=== PATIENT | female | born 1995 | race Hispanic/Latino ===

== ENCOUNTER 2025-09-01 17:57 | Inpatient (IN) | payer OTHER ==
[2025-09-01 18:43] VITALS: BMI 33.9
[2025-09-01] MEDS ORDERED: Methylergonovine 0.2 MG/ML VIAL IM PRN (19:23)
[2025-09-01] MEDS ORDERED: Acetaminophen 500 MG TAB PO PRN (19:23)
[2025-09-01] MEDS ORDERED: Lidocaine 1% (PF) 30 ML VIAL SC PRN (19:23)
[2025-09-01] MEDS ORDERED: Diphenoxylate HCl/Atropine Tablet PO PRN ×2 (19:23)
[2025-09-01] MEDS ORDERED: Tranexamic Acid 1,000 MG/10 ML VIAL IVP PRN (19:23)
[2025-09-01] MEDS ORDERED: hydrALAZINE 20 MG/ML VIAL SLOW IVP PRN (19:23)
[2025-09-01] MEDS ORDERED: Carboprost 250 MCG/ML AMP IM PRN (19:23)
[2025-09-01] MEDS ORDERED: Ondansetron PF 4 MG/2 ML Vial IVP PRN (19:23)
[2025-09-01] MEDS ORDERED: Oxytocin 30 units/NS 500 ML 500 ML IV SCH ×2 (19:30)
[2025-09-01] MEDS ORDERED: Glucagon 1 MG/ML KIT IM PRN (19:33)
[2025-09-01] MEDS ORDERED: Dextrose 50% Abboject 50 ML SYRINGE SLOW IVP PRN (19:33)
[2025-09-01 19:53] LABS: Glucose 86 mg/dL (70-105)
[2025-09-01 20:16] LABS: Syphilis Antibody Index 0.12 S/CO (<1.00 Non-Reactive)
[2025-09-01 20:17] LABS: Hep B Surf Ag - L&D Non-Reactive S/CO (NonReactive)
[2025-09-01 20:22] LABS: Hematocrit 36.3 % (34.9-44.5); Hemoglobin 12.2 g/dL (12.0-15.5); Mean Corpuscular Hemoglobin 28.4 pg (27.0-33.0); Mean Corpuscular Volume 84.4 fL (81.6-98.3); Platelet Count 126 10x3/uL (150-450); Red Blood Cell (RBC) Count 4.30 10x6/uL (3.90-5.03); White Blood Cell (WBC) Count 9.17 10x3/uL (3.5-10.5)
[2025-09-02] MEDS: fentaNYL/Ropivacaine Epidural 100 ML ONE (03:01)
[2025-09-02] MEDS ORDERED: diphenhydrAMINE 50 MG/ML VIAL IVP PRN (03:09)
[2025-09-02] MEDS ORDERED: Ondansetron PF 4 MG/2 ML Vial IVP PRN ×2 (03:09→08:41)
[2025-09-02] MEDS ORDERED: Communication Order-Pharmacy FS SCH (03:15)
[2025-09-02] MEDS ORDERED: fentaNYL 2 mcg/Ropivacaine 0.2% Epidural 100 ML CADD EPIDURAL SCH (03:15)
[2025-09-02] MEDS: Oxytocin 30 units/NS 500 ML 500 ML IV SCH (05:36)
[2025-09-02 05:50] LABS: Analyzer IN Cardio CS NICU; RapidComm Collect By RN
[2025-09-02 05:51] LABS: Analyzer IN Cardio CS NICU; RapidComm Collect By RN; pH (Cord, venous) 7.406 (7.250-7.350)
[2025-09-02] MEDS ORDERED: Lanolin Ointment 7 GM TUBE TOP PRN (08:41)
[2025-09-02] MEDS ORDERED: Preparation H Ointment 28 GM TUBE PR PRN (08:41)
[2025-09-02] MEDS ORDERED: Bisacodyl 10 MG SUPP PR PRN (08:41)
[2025-09-02] MEDS ORDERED: Methylergonovine 0.2 MG/ML VIAL IM PRN (08:41)
[2025-09-02] MEDS ORDERED: Milk Of Magnesia 30 ML UDCUP PO PRN (08:41)
[2025-09-02] MEDS ORDERED: diphenhydrAMINE 25 MG CAP PO PRN (08:41)
[2025-09-02] MEDS ORDERED: Oxytocin 30 units/NS 500 ML 500 ML IV SCH (08:41)
[2025-09-02] MEDS ORDERED: Benzocaine-Menthol 82.5 ML CAN TOP PRN (08:41)
[2025-09-02] MEDS ORDERED: hydrALAZINE 20 MG/ML VIAL SLOW IVP PRN (08:41)
[2025-09-02] MEDS: Acetaminophen 325 MG TAB PO PRN (09:20)
[2025-09-02] MEDS: Ferrous Sulfate 325 MG TAB PO SCH ×2 (09:23→11:43)
[2025-09-02] MEDS: Ibuprofen 800 MG TAB PO SCH (10:02)
[2025-09-02] MEDS ORDERED: Measles/Mumps/Rubella 10 MCG/0.5 ML VIAL SC ONE (12:00)
[2025-09-03 08:13] VITALS: BP 98/53; TEMP 98.2
[2025-09-03] MEDS: Measles/Mumps/Rubella 10 MCG/0.5 ML VIAL SC ONE (13:17)
== END 2025-09-03 13:40 | disposition home or self-care (01) | DRG 807 ==
LOC: CSHLD 17:57 → EEVIPCON 17:57 → CSHPP 09-02 08:50
PROVIDERS: ADMIT Family Medicine; ATTEND Family Medicine
PROC: 3E0DXGC Introduction of Other Therapeutic Substance into Mouth and Pharynx, External Approach (ICD-10-PCS; 2025-09-01)
PROC: 10H07YZ Insertion of Other Device into Products of Conception, Via Natural or Artificial Opening (ICD-10-PCS; 2025-09-01)
PROC: 10E0XZZ Delivery of Products of Conception, External Approach (ICD-10-PCS; principal; 2025-09-02)
PROC: 4A1HXCZ Monitoring of Products of Conception, Cardiac Rate, External Approach (ICD-10-PCS; 2025-09-02)
DX: O24.424 Gestational diabetes mellitus in childbirth, insulin controlled (principal); Z37.0 Single live birth; O69.82X0 Labor and delivery complicated by other cord entanglement, without compression, not applicable or unspecified; Z3A.38 38 weeks gestation of pregnancy; Z79.899 Other long term (current) drug therapy
CPT/HCPCS: 36415; 36416; 51702; 82805; 82947; 82951; 85027; 86780; 86850; 86900; 86901; 87340; 90707; J2590; J3105; J7120